=== PATIENT | male | born 1960 | race Caucasian/White ===

== ENCOUNTER → 2017-02-13 | Outpatient (REF) ==
[2017-02-13 16:12] LABS: THYROID STIMULATING HORMONE 3.23 uIU/mL (0.465-4.680)
== END ==
LOC: ZLAB.WCH 12:22
PROVIDERS: Family Medicine
DX: Z01.89 Encounter for other specified special examinations (principal)

== ENCOUNTER 2019-10-06 22:17 | Emergency (ER) | payer OTHER ==
[~2019-10-06] VITALS: Ht 165.1 cm; Wt 86.4 kg
[2019-10-07 01:14] VITALS: BP 132/83; PULSE 74
== END 2019-10-07 01:14 | disposition home or self-care (01) ==
LOC: COL.ER 22:17
DX: T18.128A Food in esophagus causing other injury, initial encounter (principal)
CPT/HCPCS: J2250; J3010; J7030

== ENCOUNTER → 2022-04-11 | Outpatient (CLI) | payer OTHER ==
[~2022-04-11] MED LIST: ASPIRIN 81M81 MG/TA2 PO; COREG 3.123.125 MG/T PO; LIPITOR 80MG80 MG PO; PRILOSEC 20MG20 MG PO; VITAMINC250CH PO
== END ==
LOC: COL.RAD 03-25 14:30
DX: Z12.2 Encounter for screening for malignant neoplasm of respiratory organs (principal); F17.210 Nicotine dependence, cigarettes, uncomplicated

== ENCOUNTER → 2023-08-26 | Outpatient (CLI) | payer OTHER ==
[~2023-08-26] MED LIST changes: +Iohexol 300 - 100 ML VIAL IV ONE; +NS 100 ML IV SCH
== END ==
LOC: COL.RAD 14:04
DX: I72.8 Aneurysm of other specified arteries (principal); I65.23 Occlusion and stenosis of bilateral carotid arteries; I70.1 Atherosclerosis of renal artery; K55.1 Chronic vascular disorders of intestine; Z87.891 Personal history of nicotine dependence
CPT/HCPCS: Q9967